=== PATIENT | female | born 1955 | race Caucasian/White ===

== ENCOUNTER 2020-06-27 06:09 | Outpatient (CLI) | payer MEDICARE ==
[2020-06-27] MEDS ORDERED: [UNRECOGNIZED DRUG - REMARK] INJ (14:23)
[2020-06-27] MEDS ORDERED: B12 INJ (14:23)
[2020-06-27] MEDS ORDERED: PRAS1TAB PO (14:23)
[2020-06-27] MEDS ORDERED: THYR15TA PO (14:23)
== END 2020-06-27 14:53 | disposition home or self-care (01) ==
LOC: PREOP 06:09
PROVIDERS: ATTEND Surgery
DX: Z01.818 Encounter for other preprocedural examination (principal)

== ENCOUNTER 2020-07-04 07:53 | Day surgery (SDC) | payer MEDICARE ==
[~2020-07-04] VITALS: Ht 152.4 cm; Wt 53.6 kg
[2020-07-04] VITALS (8 sets, daily range): BP systolic 84–129; BP diastolic 51–80
[~2020-07-04 07:53] MED LIST: B12 INJ; PRAS1TAB PO; THYR15TA PO; [UNRECOGNIZED DRUG - REMARK] INJ
[2020-07-04] MEDS ORDERED: LACTATED RINGERS 1,000 ML IV ONE (07:59)
[2020-07-04] MEDS ORDERED: LACTATED RINGERS 1,000 ML IV STA (08:00)
[2020-07-04] MEDS ORDERED: PROPOFOL INJECTION 50 ML IV ONE (09:00)
[2020-07-04] MEDS ORDERED: MIDAZOLAM 2 MG/2 ML (VERSED) VIAL ONE (09:00)
--- NOTE | 2020-07-04 09:05 | Progress Note-Pre Operative ---
Pre-Operative Progress Note H&P Reviewed The H&P was reviewed, patient examined and no changes noted. Time Seen by Provider: 09:03 Date H&P Reviewed: Jul 04, 2020 Time H&P Reviewed: 09:03 Pre-Operative Diagnosis: screening colonoscopy STELLA ALLEN DO Jul 04, 2020 09:05
--- NOTE | 2020-07-04 09:48 | Progress Note-Post Operative ---
Post-Operative Progess Note Surgeon (s)/Research And Development Manager (s) Surgeon STELLA ALLEN DO Research And Development Manager: EDELMIRA Tobar Pre-Operative Diagnosis screening colonoscopy Post-Operative Diagnosis Polyps Diverticula Int hemorrhoids Procedure & Operative Findings Date of Procedure 07/04/20 Procedure Performed/Findings Colon with snare Anesthesia Type IV Sedation by SECURITY INTERN Estimated Blood Loss Estimated blood loss (mL): scant Specimens/Packing Specimens Removed sigmoid polyp rectal polyp STELLA ALLEN DO Jul 04, 2020 09:48
--- NOTE | 2020-07-04 09:48 | Endoscopy Discharge Instruct ---
Endo Procedure/Findings Findings 1.: Polyp 2.: Diverticulosis 3.: Internal Hemorrhoids Discharge Instructions - Activity: You might feel a little sleepy until tomorrow. This is due to the medicine you received to relax you. Until tomorrow, you should: NOT drive a car, operate machinery or power tools. NOT drink any alcoholic beverages. NOT make any important decisions or sign importortant papers. Do not return to work until tomorrow, unless otherwise instructed. Resume previous activities tomorrow. Diet: Start by taking liquids. If you tolerate liquids, advance to solid food. 1.: Colonscopy in 5 years Notify Physician - If you experience excessive bleeding, unusual abdominal pain, fever, or chest pain, contact your doctor immediately. STELLA ALLEN DO Jul 04, 2020 09:48
--- NOTE | 2020-07-04 10:04 | Anesthesia-General Post-Op ---
MAC Patient Condition Mental Status/LOC: Same as Preop Cardiovascular: Satisfactory Nausea/Vomiting: Absent Respiratory: Satisfactory Pain: Controlled Complications: Absent Post Op Complications Complications None Follow Up Care/Instructions Patient Instructions None needed. Anesthesiology Discharge Order Discharge Order Patient is doing well, no complaints, stable vital signs, no apparent adverse anesthesia problems. No complications reported per nursing. NELA HUTCHINSON CRNA Jul 04, 2020 10:04
--- NOTE | 2020-07-04 21:05 | OPERATIVE REPORT ---
DATE OF SERVICE: 07/04/2020 PREOPERATIVE DIAGNOSIS: Screening colonoscopy. POSTOPERATIVE DIAGNOSES: Colon polyps, diverticula, internal hemorrhoids. PROCEDURE: Colonoscopy with snare polypectomy. SURGEON: Gary Molina DO CORK TILE FLOOR LAYER: Maxim Calhoun. ANESTHESIA: IV sedation by the HUMAN CAPITAL ANALYST. SPECIMEN: Descending colon polyp and rectal polyp. BLOOD LOSS: Scant. FLUIDS: Per anesthesia. POSTOPERATIVE CONDITION: Stable. INDICATION FOR PROCEDURE: The patient is a 65-year-old female who needs a screening colonoscopy. FINDINGS: The patient had some diverticula, two polyps and some internal hemorrhoids. PROCEDURE NOTE: After informed consent was obtained, the patient was brought to the endoscopy suite, placed in bed in left lateral decubitus position. She was administered IV sedation by the HUMAN CAPITAL ANALYST who then monitored her vitals the entire time, heart rate, blood pressure and pulse ox. A scope was inserted, pushed all the way into about 150 cm, able to get to the cecum, took a picture of the appendiceal orifice. On the way in, noted diverticula, and pictures were taken. Once in the cecum, then slowly withdrew the scope insufflating to look circumferentially at the [place] looking the cecum, up the ascending colon to the hepatic flexure, then down the transverse colon, splenic flexure, into the descending colon, we saw a polyp, did a snare polypectomy of this and then continued down into the sigmoid colon, and finally into the rectum, retroflexed the scope in the rectal vault and saw some internal hemorrhoids and a rectal polyp, which may just been a papillae of the internal hemorrhoid. Did a snare polypectomy of this as well and then suctioned this up. All these were sent to pathology. Scope was removed. The patient tolerated the procedure, recovered in endoscopy suite. Job ID: [id number] DocumentID: [id number] Dictated Date: 07/04/2020 17:34:02 [employer]erial [employer] Date: 07/04/2020 21:03:29 Dictated By: STELLA MOLINA DO
== END 2020-07-04 10:45 | disposition home or self-care (01) ==
LOC: ENDO 07:53
PROVIDERS: ATTEND Surgery
DX: Z12.11 Encounter for screening for malignant neoplasm of colon (principal); K63.5 Polyp of colon; K62.1 Rectal polyp; K57.30 Diverticulosis of large intestine without perforation or abscess without bleeding; K64.8 Other hemorrhoids; E03.9 Hypothyroidism, unspecified; Z91.048 Other nonmedicinal substance allergy status; Z79.899 Other long term (current) drug therapy; Z83.3 Family history of diabetes mellitus; Z82.49 Family history of ischemic heart disease and other diseases of the circulatory system
CPT/HCPCS: 88305